=== PATIENT | male | born 1975 | race African-American/Black ===

== ENCOUNTER 2017-02-03 19:44 | Emergency (ER) | payer OTHER ==
[~2017-02-03] VITALS: Ht 175.3 cm; Wt 65.9 kg
[2017-02-03 19:50] VITALS: BP 109/81; TEMP 98.3
[2017-02-03] MEDS ORDERED: MEDROL 4MG DOSPA4 MG PO (21:04)
[2017-02-03] MEDS ORDERED: FLEXERIL 1010 MG/TAB PO (21:04)
[2017-02-03 21:27] VITALS: PULSE 87
== END 2017-02-03 21:27 | disposition home or self-care (01) ==
LOC: COL.ER 19:44
DX: M54.12 Radiculopathy, cervical region (principal)

== ENCOUNTER 2018-05-14 20:01 | Emergency (ER) | payer SELFPAY ==
[~2018-05-14] VITALS: Ht 175.3 cm; Wt 63.6 kg
[~2018-05-14 20:01] MED LIST: FLEXERIL 1010 MG/TAB PO; MEDROL 4MG DOSPA4 MG PO
[2018-05-14 20:04] VITALS: BP 129/78; PULSE 71; TEMP 98.1
== END 2018-05-14 20:27 | disposition home or self-care (01) ==
LOC: COL.ER 20:01
DX: S61.210A Laceration without foreign body of right index finger without damage to nail, initial encounter (principal); Z23 Encounter for immunization; F17.210 Nicotine dependence, cigarettes, uncomplicated; W26.8XXA Contact with other sharp object(s), not elsewhere classified, initial encounter; Y92.89 Other specified places as the place of occurrence of the external cause

== ENCOUNTER 2019-03-04 11:04 | Emergency (ER) | payer SELFPAY ==
[~2019-03-04] VITALS: Ht 172.7 cm; Wt 65.9 kg
[2019-03-04 11:08] VITALS: BP 129/98; TEMP 98.3
[2019-03-04] MEDS ORDERED: FLEXERIL 1010 MG/TAB PO (12:04)
[2019-03-04 12:22] VITALS: PULSE 97
== END 2019-03-04 12:25 | disposition home or self-care (01) ==
LOC: COL.ER 11:04
DX: M54.2 Cervicalgia (principal)

== ENCOUNTER 2019-04-02 13:59 | Emergency (ER) | payer SELFPAY ==
[~2019-04-02] VITALS: Ht 175.3 cm; Wt 65.9 kg
[2019-04-02 15:06] VITALS: BP 155/71; PULSE 85; TEMP 97.9
== END 2019-04-02 15:07 | disposition home or self-care (01) ==
LOC: COL.ER 13:59
DX: S43.401A Unspecified sprain of right shoulder joint, initial encounter (principal); F17.210 Nicotine dependence, cigarettes, uncomplicated; X50.0XXA Overexertion from strenuous movement or load, initial encounter; Y92.59 Other trade areas as the place of occurrence of the external cause